=== PATIENT | male | born 2000 | race Hispanic/Latino ===

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

== ENCOUNTER 2020-03-23 09:45 | Emergency (ER) | payer OTHER, SELFPAY ==
--- NOTE | ~2020-03-23 | CT_ITS ---
EXAMINATION: CT abdomen pelvis w con INDICATION: Generalized abdominal pain TECHNIQUE: Computed tomographic images of the abdomen and pelvis were obtained after the administrati on of 100 cc of Omnipaque 350 intravenous contrast. The dose-length product (DLP) was 452.29 mGy-cm. Automated exposure control and iterative reconstruction technique were employed. COMPARISON: None available FINDINGS: There are patchy groundglass opacities of the visualized lung bases. The heart size is norm al. The liver, spleen, pancreas, gallbladder, and adrenal glands are normal. The kidneys are unremark able. No pathologically enlarged abdominal or pelvic lymph nodes are identified. There is no free int raperitoneal gas or evidence of bowel obstruction. The appendix is normal and enters the right inguin al canal. IMPRESSION: 1. No CT correlate for the patient's symptoms. Reviewed, dictated and finalized at [facility]. K SEPARATOR
[2020-03-23 09:49] VITALS: BP 130/75; PULSE 89; RESP 15; TEMP 36.1; O2SAT 100
--- NOTE | 2020-03-23 10:01 | ED.ABDPAIN ---
HPI - Abdominal Pain General Chief Complaint: Abdominal Pain Stated Complaint: R ABD PAIN Time Seen by Provider: 03/23/20 09:53 History of Present Illness HPI narrative: 19 yo w/ no significant medical history presents to the ED for abdominal pain. The pain started a few days ago. Initially in the epigastrium, spread throughout the entire abdomen. Associated with nausea and vomiting. He denies any previous episodes. He believes that he had a fever a few days ago. No cough, congestion, SOB, dysuria. Related Data Allergies Allergy/AdvReac Type Severity Reaction Status Date / Time No Known Allergies Allergy Verified 03/23/20 10:04 Review of Systems Review of Systems: All systems reviewed & are unremarkable except as noted in HPI and below Constitutional: Constitutional: Reports fever(s) and Denies weakness ENT: Denies sore throat Cardiovascular: Cardiovascular: Denies chest pain Respiratory: Respiratory: Denies cough and Denies dyspnea Gastrointestinal: Gastrointestinal: Reports abdominal pain, Reports diarrhea, Reports nausea and Reports vomiting Neurologic: Reports dizziness and Denies weakness [facility] Past Medical History Medical History No significant past medical history Surgical History Surgical History No significant past surgical history Social History Social History Smoking status: Former smoker Alcohol intake: never Substance use: never Gender identity (if verbalized by the patient): Male Exam Const: General: healthy appearing, no acute distress and alert Orientation/consciousness: patient oriented x3 HENMT: Head: normal to inspection Neck: Neck: normal visual inspection and no lymphadenopathy Chest: Chest palpation & inspection: no tenderness Resp: Effort & Inspection: normal respiratory effort Auscultation: clear to auscultation bilaterally, no rales, no rhonchi and no wheezes Cardio: Jugular venous distension: no JVD Rate: regular rate Rhythm: regular rhythm Heart sounds: no murmurs GI: Inspection: non-distended GI Palp: Yes Soft to palpation and Yes Tenderness to palpation present (GI) (epigastric and periumbilical) Skin: General skin exam: normal color Neuro: General: patient oriented x3 and moves all extremities Speech: normal speech Extrem: General: no edema Psych: Appearance: well kempt Affect: normal affect Course Vital Signs Vital signs: Vital Signs Temperature 36.1 C L 03/23/20 09:49 Pulse Rate 89 03/23/20 09:49 Respiratory Rate 15 03/23/20 09:49 Blood Pressure 130/75 03/23/20 09:49 Pulse Oximetry 100 03/23/20 09:49 Temperature 36.1 C L 03/23/20 09:49 Pulse Rate 78 03/23/20 12:40 Respiratory Rate 18 03/23/20 12:40 Blood Pressure 138/78 03/23/20 12:40 Pulse Oximetry 99 03/23/20 12:40 MDM - Abdominal Pain Differential Diagnosis Differential diagnosis: Likely acute appendicitis, constipation, gastroenteritis, pancreatitis and other (PUD, GERD) Medical Records Attestation: I reviewed the patient's medical records. Lab Data Attestation: I reviewed the patient's lab results. Result diagrams: 03/23/20 10:20 03/23/20 10:20 Labs: Lab Results 03/23/20 03/23/20 03/23/20 Range/Units 10:20 10:20 11:22 WBC 14.1 H (4.5-10.0) K/mm3 RBC 4.74 (4.6-6.20) M/mm3 Hgb 13.3 L (14.0-18.0) g/dL Hct 40.2 L (42.0-52.0) % MCV 84.8 (80-100) fl MCH 28.1 (26-34) pg MCHC 33.1 (32-36) g/dl RDW 13.0 (11.5-14.5) % Plt Count 394 H D (150-375) k/mm3 MPV 11.1 H (7.4-10.4) fl Immature Gran % (Auto) 0.4 (0-0.5) % Neut % (Auto) 81.3 H (45.5-73.1) % Lymph % (Auto) 14.6 L (18.3-44.2) % [place] % (Auto) 2.7 (2.6-8.5) % Eos % (Auto) 0.7 (0-4.4) % Baso % (Auto) 0.3 (0.2-1.2) %
[2020-03-23] MEDS: SODIUM CHLORIDE 0.9% IV 1,000 ML 999 ML IV CONT (10:16)
[2020-03-23] MEDS: PANTOPRAZOLE SODIUM IV 40 MG VIAL IV PUSH (10:17)
[2020-03-23] MEDS: fentaNYL CITRATE INJ (*CRX) 100 MCG/2 ML VIAL 25 MCG IV PUSH (10:17)
[2020-03-23] MEDS: ONDANSETRON INJ 4 MG/2 ML VIAL IV PUSH (10:18)
[2020-03-23 10:41] LABS: Basophils Percent Auto 0.3 % (0.2-1.2); Eosinophils Absolute Auto 0.1 K/mm3 (0-0.3); Eosinophils Percent Auto 0.7 % (0-4.4); Hematocrit 40.2 % (42.0-52.0); Hemoglobin 13.3 g/dL (14.0-18.0); Immature Granulocyte Absolute 0.06 K/mm3 (0.00-0.031); Immature Granulocyte Percent A 0.4 % (0-0.5); Lymphocytes Absolute Auto 2.05 K/mm3 (0.9-3.2); Lymphocytes Percent Auto 14.6 % (18.3-44.2); Mean Corpuscular HGB Conc 33.1 g/dl (32-36); Mean Corpuscular Hemoglobin 28.1 pg (26-34); Mean Corpuscular Volume 84.8 fl (80-100); Mean Platelet Volume 11.1 fl (7.4-10.4); Monocytes Absolute Auto 0.4 K/mm3 (0.1-0.6); Monocytes Percent Auto 2.7 % (2.6-8.5); Neutrophils Absolute Auto 11.5 K/mm3 (1.3-6.7); Neutrophils Percent Auto 81.3 % (45.5-73.1); Platelet Count Result 394 k/mm3 (150-375); Red Blood Count 4.74 M/mm3 (4.6-6.20); White Blood Count 14.1 K/mm3 (4.5-10.0)
[2020-03-23 10:54] LABS: Alanine Aminotransferase 19 U/L (4-50); Albumin Level 4.8 g/dL (3.7-5.6); Alkaline Phosphatase 98 U/L (58-237); Anion Gap 12 mmol/L (8-16); Aspartate Amino Transferase 37 U/L (17-59); Bilirubin,Total 2.2 mg/dL (0.2-1.3); Blood Urea Nitrogen 15 mg/dL (8-21); Calcium 10.3 mg/dL (8.9-10.7); Carbon Dioxide 28 mmol/L (22-30); Chloride 100 mmol/L (98-107); Estimated CRCL calculation 137 ml/min; Estimated Glomerular Filt Rate > 60; Glucose 106 mg/dL (75-110); Lipase 13 U/L (23-300); Potassium 3.5 mmol/L (3.4-5.0); Sodium 140 mmol/L (134-143)
[2020-03-23 11:31] LABS: Add Urine Microscopic? YES; Appearance Urine Clear (Clear); Bilirubin Urine Negative (Negative); Blood Urine Negative (Negative); Color Urine Yellow (Yellow); Glucose Urine UA Negative (Negative); Ketones Urine 1+ mg/dL (Negative); Leukocyte Esterase Ur Negative LEU/UL (Negative); Mucus Urine Heavy /lpf; Nitrate Urine Negative (Negative); Protein Urine 2+ mg/dL (Negative); Specific Grav Ur 1.027 (1.001-1.035); Squamous Epithelial Cell Urine Rare /hpf (Few)
[2020-03-23 12:40] VITALS: BP 138/78; PULSE 78; RESP 18; O2SAT 99
[2020-03-23] MEDS: cefTRIAXone 1 GM VIAL 0.5 GM IM (14:42)
[2020-03-23] MEDS: DOXYCYCLINE HYCLATE 100 MG TABLET PO (14:42)
[2020-03-23 15:02] VITALS: BP 122/80; PULSE 70; RESP 18; O2SAT 99
[2020-03-24 18:27] LABS: SARS-CoV-2 RNA PCR Negative
== END 2020-03-23 15:04 | disposition home or self-care (01) ==
PROVIDERS: Emergency Provider Emergency Medicine
DX: R10.13 Epigastric pain (principal); R11.2 Nausea with vomiting, unspecified; N34.2 Other urethritis; Z20.822 Contact with and (suspected) exposure to COVID-19; Z87.891 Personal history of nicotine dependence
CPT/HCPCS: 36415; 74177; 80053; 81001; 83690; 85025; 87086; 96361; 96365; 96372; 96375; 99284; A9270; C9113; C9803; J0131; J0696; J2405; J3010; J7030; Q9967; U0003; U0005

== ENCOUNTER 2020-05-13 21:49 | Emergency (ER) | payer OTHER, SELFPAY ==
[2020-05-13 22:01] VITALS: BP 115/58; PULSE 81; RESP 18; TEMP 36.6; O2SAT 99
--- NOTE | 2020-05-13 22:23 | ED.GENADULT ---
HPI - General Adult General Chief complaint: Unspecified Stated complaint: umbilicus pain and discharge Time Seen by Provider: 05/13/20 22:14 History of Present Illness HPI narrative: Patient is a 19-year-old gentleman who presents the emergency department with chief complaint of swelling and tenderness and draining pus from his umbilicus. Patient states he started having some mild discomfort in the affected area today and then noticed that there was some white purulent drainage from his bellybutton. Patient states the area is tender to touch and reports that it is a little bit more firm in that area. Patient denies any other medical problems denies injury denies fever chills body aches. Related Data Allergies Allergy/AdvReac Type Severity Reaction Status Date / Time No Known Allergies Allergy Verified 05/13/20 22:04 Review of Systems Review of Systems: Narrative: A 10 system review of systems was completed on the patient and is negative except for what is stated in the HPI. Nursing and ancillary documentation was reviewed. PMFSH Past Medical History Medical History No significant past medical history Surgical History Surgical History No significant past surgical history Social History Social History Smoking status: Former smoker Alcohol intake: never Substance use: never Gender identity (if verbalized by the patient): Male Exam Narrative: Exam Narrative: GENERAL: Well-appearing, well-nourished, and in no acute distress. HEAD: Normocephalic, atraumatic. EYES: PERRLA and EOMI. ENT: Nares clear, no rhinorrhea or epistaxis. Mucous membranes moist. NECK: Supple. CHEST: Clear to auscultation. No respiratory distress. HEART: Regular rate and rhythm. No murmur heard. Normal peripheral pulses. ABDOMEN: Soft, nontender, nondistended, normal active bowel sounds. There is a small area of erythema in the superior aspect of the umbilicus. There is a area of draining purulence from the area pus was expressed from the affected area EXTREMITIES: Normal range of motion. No edema. SKIN: Warm, dry, no rash. NEURO: No focal deficits. Alert and oriented x3. PSYCH: Normal mood and affect. Course Vital Signs Vital signs: Vital Signs Temperature 36.6 C 05/13/20 22:01 Pulse Rate 81 05/13/20 22:01 Respiratory Rate 18 05/13/20 22:01 Blood Pressure 115/58 L 05/13/20 22:01 Pulse Oximetry 99 05/13/20 22:01 Temperature 36.6 C 05/13/20 22:01 Pulse Rate 81 05/13/20 22:01 Respiratory Rate 18 05/13/20 22:01 Blood Pressure 115/58 L 05/13/20 22:01 Pulse Oximetry 99 05/13/20 22:01 Medical Decision Making Vital Signs Vital Signs: Vital Signs Temperature 36.6 C 05/13/20 22:01 Pulse Rate 81 05/13/20 22:01 Respiratory Rate 18 05/13/20 22:01 Blood Pressure 115/58 L 05/13/20 22:01 Pulse Oximetry 99 05/13/20 22:01 Temperature 36.6 C 05/13/20 22:01 Pulse Rate 81 05/13/20 22:01 Respiratory Rate 18 05/13/20 22:01 Blood Pressure 115/58 L 05/13/20 22:01 Pulse Oximetry 99 05/13/20 22:01 Discharge Plan Discharge Clinical Impression: Abscess Cellulitis Qualifiers: Site of cellulitis: trunk Site of cellulitis of trunk: umbilicus Qualified Code(s): L03.316 - Cellulitis of umbilicus Patient Disposition: Home, Self-Care Condition: Stable Instructions: Antibiotic Form, Cellulitis (ED), Abscess (ED) Prescriptions: New sulfamethoxazole-trimethoprim [Bactrim DS] 800-160 mg tablet 1 tablet PO Q12H 10 Days Qty: 20 RF: 0 No Action famotidine [Pepcid] 20 mg tablet 20 mg PO BID Qty: 60 RF: 0 ondansetron HCl [Zofran] 4 mg tablet 4 mg PO Q6H PRN (Reason: nausea and vomiting) Qty: 10 RF: 0 doxycycline hyclate 100 mg tablet 100 mg PO BID Qty: 14 RF
[2020-05-13] MEDS: HYDROcodone/acetaminophen (*CRX) 5-325 MG TABLET 1 TAB PO (22:34)
[2020-05-13 22:38] VITALS: BP 118/73; PULSE 88; RESP 16; TEMP 36.9; O2SAT 100
== END 2020-05-13 22:39 | disposition home or self-care (01) ==
PROVIDERS: Emergency Provider Emergency Medicine
DX: L02.216 Cutaneous abscess of umbilicus (principal); L03.316 Cellulitis of umbilicus; Z87.891 Personal history of nicotine dependence
CPT/HCPCS: 99283; A9270

== ENCOUNTER 2021-08-12 07:32 | Emergency (ER) | payer OTHER, SELFPAY ==
--- NOTE | ~2021-08-12 | CT_ITS ---
EXAMINATION: CT abdomen pelvis wo con DATE: 08/12/2021 07:58 INDICATION: Left abdominal pain TECHNIQUE: Computed tomography (CT) of the abdomen and pelvis was performed without intravenous contr ast. Automated exposure control and iterative reconstruction technique were employed. Exam dose: 355 .12 mGy-cm total exam DLP. COMPARISON: 03/19/2020 CT abdomen pelvis FINDINGS: The lung bases are clear. Normal heart size. No pericardial or pleural effusion. The liver, spleen, gallbladder, bile ducts, pancreas, pancreatic duct, and adrenal glands and kidneys appear normal. No urinary tract calculus or hydroureteronephrosis. Normal appendix. No bowel obstruction or intraperitoneal free air. Included skeletal structures are unremarkable. IMPRESSION: No significant abnormality Reviewed, dictated and finalized at [facility]. Reviewed, dictated and finalized at [facility]. IMPRESSION: No significant abnormality
[2021-08-12 07:40] VITALS: BP 128/79; PULSE 60; RESP 16; TEMP 36.6; O2SAT 100
[2021-08-12 07:47] VITALS: BP 121/82; PULSE 62; RESP 11; O2SAT 100
[2021-08-12 07:59] LABS: Basophils Percent Auto 0.2 % (0.2-1.2); Eosinophils Absolute Auto 0.1 K/mm3 (0-0.3); Eosinophils Percent Auto 0.6 % (0-4.4); Hemoglobin 14.3 g/dL (14.0-18.0); Immature Granulocyte Absolute 0.02 K/mm3 (0.00-0.031); Immature Granulocyte Percent A 0.2 % (0-0.5); Lymphocytes Absolute Auto 0.68 K/mm3 (0.9-3.2); Lymphocytes Percent Auto 7.6 % (18.3-44.2); Mean Corpuscular HGB Conc 32.5 g/dl (32-36); Mean Corpuscular Volume 86.3 fl (80-100); Mean Platelet Volume 11.4 fl (7.4-10.4); Monocytes Absolute Auto 0.5 K/mm3 (0.1-0.6); Monocytes Percent Auto 5.2 % (2.6-8.5); Neutrophils Absolute Auto 7.7 K/mm3 (1.3-6.7); Neutrophils Percent Auto 86.2 % (45.5-73.1); Platelet Count Result 222 k/mm3 (150-375); White Blood Count 8.9 K/mm3 (4.5-10.0)
[2021-08-12 08:10] LABS: Alanine Aminotransferase 29 U/L (6-50); Albumin Level 5.2 g/dL (3.5-5.1); Alkaline Phosphatase 79 U/L (38-126); Anion Gap 10 mmol/L (8-16); Aspartate Amino Transferase 27 U/L (17-59); Blood Urea Nitrogen 14 mg/dL (9-20); Calcium 9.5 mg/dL (8.4-10.2); Carbon Dioxide 24 mmol/L (22-30); Chloride 106 mmol/L (98-107); Estimated CRCL calculation 131 ml/min; Estimated Glomerular Filt Rate > 60; Glucose 121 mg/dL (65-110); Lipase 39 U/L (23-300); Potassium 3.6 mmol/L (3.4-5.0); Sodium 140 mmol/L (137-145)
[2021-08-12] MEDS: SODIUM CHLORIDE 0.9% IV 1,000 ML 999 ML IV CONT (08:10)
[2021-08-12] MEDS: ONDANSETRON INJ 4 MG/2 ML VIAL IV PUSH (08:10)
[2021-08-12] MEDS: LIDOCAINE HCL 2% VISC SOLN 15 ML UDC 20 ML PO (08:11)
[2021-08-12] MEDS: MAG HYDROX/AL HYDROX/SIMETH 30 ML UDC PO (08:11)
[2021-08-12 08:37] LABS: Appearance Urine Clear (Clear); Bilirubin Urine Negative (Negative); Blood Urine Negative (Negative); Color Urine Yellow (Yellow); Glucose Urine UA Negative (Negative); Ketones Urine Negative (Negative); Leukocyte Esterase Ur Negative LEU/UL (Negative); Nitrate Urine Negative (Negative); Protein Urine 1+ mg/dL (Negative); Specific Grav Ur 1.015 (1.001-1.035); Urobilinogen Urine 0.2 mg/dL (<2.0); pH Urine >=9.0 (5.0-9.0)
[2021-08-12 08:41] LABS: Bacteria Urine Trace /hpf; Mucus Urine Rare /lpf; RBC Urine 0-2 /hpf (0-2); WBC Urine 0-3 /hpf
[2021-08-12 08:42] LABS: Add Urine Microscopic? YES
[2021-08-12 09:17] VITALS: BP 124/78; PULSE 62; RESP 15; O2SAT 98
--- NOTE | 2021-08-12 09:25 | ED.ABDPAIN ---
HPI - Abdominal Pain General Chief Complaint: Abdominal Pain Stated Complaint: L flank pain, n/v Time Seen by Provider: 08/12/21 07:37 Source: patient History of Present Illness HPI narrative: Patient presents with abdominal pain with nausea and vomiting. Patient reports he had abdominal pain for the couple weeks. Symptoms are worse today so came to the ER for evaluation. Has had nausea and vomiting over this time course as well is also noted diarrhea over the past couple days. Denies any fevers, cough, congestion. His pain is primarily in the epigastric achy, constant, no clear aggravating or alleviating factors, no radiation. Denies any blood bile or melena Related Data Allergies Allergy/AdvReac Type Severity Reaction Status Date / Time No Known Allergies Allergy Verified 05/13/20 22:04 Review of Systems Review of Systems: CONSTITUTIONAL: Denies fever, chills, or sweats. EYES: Denies visual changes, redness, or discharge. ENT: Denies rhinorrhea, congestion, sore throat, or otalgia. CARDIOVASCULAR: Denies chest pain, palpitations, or edema. RESPIRATORY: Denies cough or dyspnea. GASTROINTESTINAL: Abdominal pain nausea vomiting and diarrhea GENITOURINARY: Denies dysuria or hematuria. SKIN: Denies rash or itching. MUSCULOSKELETAL: Denies back pain, joint pain, or myalgia. NEUROLOGIC: Denies headache, numbness, dizziness, or weakness. PSYCHIATRIC: Denies anxiety or depression. All systems reviewed & are unremarkable except as noted in HPI and below PMFSH Past Medical History Medical History No significant past medical history Surgical History Surgical History No significant past surgical history Social History Social History Smoking status: Former smoker Alcohol intake: never Substance use: never Gender identity (if verbalized by the patient): Male Exam Narrative: GENERAL: Well-appearing, well-nourished, and in no acute distress. HEAD: Normocephalic, atraumatic. EYES: PERRLA and EOMI. ENT: Nares clear, no rhinorrhea or epistaxis. Mucous membranes moist. NECK: Supple. No masses. No JVD CHEST: Clear to auscultation. No respiratory distress. No wheezes rales or rhonchi HEART: Regular rate and rhythm. No murmur heard. Normal peripheral pulses. ABDOMEN: Mild tenderness with palpation of the epigastric area no rebound or guarding soft,nondistended, EXTREMITIES: Normal range of motion. No edema. SKIN: Warm, dry, no rash. NEURO: No focal deficits. Alert and oriented x3. PSYCH: Normal mood and affect. Course Reevaluation(s) Reevaluation #1: Patient reports symptoms have resolved. Results and plan reviewed with patient. Patient is comfortable outpatient plan. Date: 08/12/21 Time: 09:25 Vital Signs Vital signs: Vital Signs Temperature 36.6 C 08/12/21 07:40 Pulse Rate 60 08/12/21 07:40 Respiratory Rate 16 08/12/21 07:40 Blood Pressure 128/79 08/12/21 07:40 Pulse Oximetry 100 08/12/21 07:40 Oxygen Delivery Room Air 08/12/21 07:40 Temperature 36.6 C 08/12/21 07:40 Pulse Rate 60 08/12/21 09:50 Respiratory Rate 16 08/12/21 09:50 Blood Pressure 116/75 08/12/21 09:50 Pulse Oximetry 99 08/12/21 09:50 Oxygen Delivery Room Air 08/12/21 07:40 MDM - Abdominal Pain MDM Narrative Medical decision making narrative: H&P as above, vss, pt looks clinically well, exam epigastric pain, labs clinically unremarkable, img without acute process, additional labs/img considered, symptomatic relief available as needed, on reevaluation pt continues to looks clinically well. Suspect with history of nausea vomiting diarrhea symptoms may represent viral process however patient had large improvement with GI cocktail symptoms may also represent gastritis. dns severe sepsis, severe dehydration, bowel obstruction, colitis,
[2021-08-12 09:31] VITALS: BP 136/92; PULSE 63; RESP 19; O2SAT 100
[2021-08-12 09:50] VITALS: BP 116/75; PULSE 60; RESP 16; O2SAT 99
== END 2021-08-12 09:50 | disposition home or self-care (01) ==
PROVIDERS: Emergency Provider Emergency Medicine
DX: R10.13 Epigastric pain (principal); R11.2 Nausea with vomiting, unspecified
CPT/HCPCS: 36415; 74176; 80053; 81001; 83690; 85025; 96361; 96374; 99284; A9270; J2405; J7030

== ENCOUNTER 2023-04-21 20:58 | Emergency (ER) | payer SELFPAY ==
[2023-04-21 21:08] VITALS: BP 149/78; PULSE 67; RESP 20; TEMP 36.1; O2SAT 100
[2023-04-21 21:29] LABS: Basophils Percent Auto 0.5 % (0.2-1.2); Eosinophils Absolute Auto 0.2 K/mm3 (0-0.3); Eosinophils Percent Auto 2.1 % (0-4.4); Hematocrit 45.3 % (42.0-52.0); Hemoglobin 14.6 g/dL (14.0-18.0); Immature Granulocyte Absolute 0.02 K/mm3 (0.00-0.031); Immature Granulocyte Percent A 0.2 % (0-0.5); Lymphocytes Absolute Auto 3.98 K/mm3 (0.9-3.2); Lymphocytes Percent Auto 48.8 % (18.3-44.2); Mean Corpuscular HGB Conc 32.2 g/dl (32-36); Mean Corpuscular Hemoglobin 27.9 pg (26-34); Mean Corpuscular Volume 86.6 fl (80-100); Mean Platelet Volume 12.2 fl (7.4-10.4); Monocytes Absolute Auto 0.5 K/mm3 (0.1-0.6); Monocytes Percent Auto 6.6 % (2.6-8.5); Neutrophils Absolute Auto 3.4 K/mm3 (1.3-6.7); Neutrophils Percent Auto 41.8 % (45.5-73.1); Platelet Count Result 251 k/mm3 (150-375); Red Blood Count 5.23 M/mm3 (4.6-6.20); Red Cell Distribution Width 13.2 % (11.5-14.5); White Blood Count 8.2 K/mm3 (4.5-10.0)
[2023-04-21 21:41] LABS: Alanine Aminotransferase 21 U/L (6-50); Alkaline Phosphatase 74 U/L (38-126); Anion Gap 12 mmol/L (8-16); Aspartate Amino Transferase 26 U/L (17-59); Bilirubin,Total 1.2 mg/dL (0.2-1.3); Blood Urea Nitrogen 13 mg/dL (9-20); Calcium 9.7 mg/dL (8.4-10.2); Carbon Dioxide 26 mmol/L (22-30); Chloride 103 mmol/L (98-107); Estimated CRCL calculation 126 ml/min; Estimated Glomerular Filt Rate > 60; Glucose 115 mg/dL (65-110); Lipase 35 U/L (23-300); Potassium 3.7 mmol/L (3.4-5.0); Sodium 141 mmol/L (137-145)
[2023-04-21 22:42] LABS: Influenza A QL RT-PCR Negative (Negative); Influenza B QL RT-PCR Negative (Negative); RSV RNA, RT-PCR Negative (Negative); SARS-CoV-2 RNA PCR Negative (Negative)
== END 2023-04-21 23:23 | disposition left against medical advice (07) ==
LOC: ANHED 22:45
PROVIDERS: Student in an Organized Health Care Education/Training Program; Emergency Provider Physician Assistant
DX: R11.2 Nausea with vomiting, unspecified (principal); Z20.822 Contact with and (suspected) exposure to COVID-19
CPT/HCPCS: 36415; 80053; 83690; 85025; 87637; 99199